=== PATIENT | male | born 1960 | race Caucasian/White ===

== ENCOUNTER 2016-10-17 12:42 | Emergency (ER) | payer OTHER ==
[~2016-10-17] VITALS: Wt 90.7 kg
[~2016-10-17 12:42] MED LIST: ALBUTEROL; ALPRAZOLAM1 MG PO; BACLOFEN20 MG PO; GABAPENTIN800 MG PO; LAMICTAL200 MG PO; LIDODERM 5% PATC1 EA PO; PRILOSEC20 MG PO; SERTRALINE100 MG PO; SIMVASTATIN80 MG PO; TESTOSTERO200 MG/10 IM; TRAMADOL HCL50 MG PO
[2016-10-17] MEDS ORDERED: KEFLEX500 M1 PO (13:33)
== END 2016-10-17 14:17 | disposition home or self-care (01) ==
LOC: ED 12:42
DX: S80.812A Abrasion, left lower leg, initial encounter (principal); L08.9 Local infection of the skin and subcutaneous tissue, unspecified; F17.200 Nicotine dependence, unspecified, uncomplicated; Z79.899 Other long term (current) drug therapy; W45.8XXA Other foreign body or object entering through skin, initial encounter; Y93.89 Activity, other specified; Y92.89 Other specified places as the place of occurrence of the external cause; Y99.9 Unspecified external cause status

== ENCOUNTER 2016-12-30 14:50 | Emergency (ER) | payer OTHER ==
[~2016-12-30] VITALS: Ht 177.8 cm; Wt 97.5 kg
[~2016-12-30 14:50] MED LIST changes: +KEFLEX500 M1 PO
== END 2016-12-30 18:48 | disposition short-term general hospital (02) ==
LOC: ED 14:50
DX: S06.0X9A Concussion with loss of consciousness of unspecified duration, initial encounter (principal); R20.0 Anesthesia of skin; G89.29 Other chronic pain; M54.9 Dorsalgia, unspecified; F17.200 Nicotine dependence, unspecified, uncomplicated; Z79.899 Other long term (current) drug therapy; W14.XXXA Fall from tree, initial encounter; Y93.89 Activity, other specified; Y92.89 Other specified places as the place of occurrence of the external cause; Y99.9 Unspecified external cause status